=== PATIENT | male | born 1970 | race Two or more races ===

== ENCOUNTER 2017-02-15 17:12 | Emergency (ER) | payer SELFPAY ==
[~2017-02-15 17:12] MED LIST: BACTRIM DS TAB1 EAC2 PO; BACTRIM DS TABL1 TAB PO; CYCLOBENZAPRINE10 M1 PO; CYCLOBENZAPRINE5 M1 PO; DOXYCYCLINE HY100 M5 PO; HYDROCODON-ACE1 EA16 PO; IBUPROFEN800 M1 PO; MEDROL4 MG/DOSE- PO; MOBIC15 M2 PO; NAPROSYN500 M1 PO; NO HOME MEDICATION XX; NORCO 5-325 TA1 EACH PO; ORPHENADRINE C100 M1 PO; PERCOCET 5-3251 EACH PO; no meds
[2017-02-15] MEDS ORDERED: BP MED (17:33)
[2017-02-15] MEDS ORDERED: BENAZEPRIL HCL5 M2 PO (18:14)
[2017-02-15] MEDS ORDERED: HYDROCHLOROTH12.5 M2 PO (18:14)
[2017-02-15] MEDS ORDERED: TENORMIN25 M1 PO (18:15)
[2017-02-15] MEDS ORDERED: CYCLOBENZAPRINE10 M1 PO (18:51)
== END 2017-02-15 19:10 ==
LOC: EDMED 17:12
DX: M79.662 Pain in left lower leg (principal); I10 Essential (primary) hypertension; F17.200 Nicotine dependence, unspecified, uncomplicated; Z79.899 Other long term (current) drug therapy